=== PATIENT | male | born 1965 | race Two or more races ===

== ENCOUNTER 2022-12-05 10:39 | Inpatient (IN) | payer OTHER ==
[~2022-12-05] VITALS: Ht 177.8 cm; Wt 81.0 kg
[~2022-12-05 10:39] MED LIST: LISI20TA28 PO
[2022-12-05] MEDS ORDERED: ceFAZolin 1GM/50ML 100 ML IV ONE (10:46)
[2022-12-05] MEDS ORDERED: TRANEXAMIC ACID 20 ML ONE (11:01)
[2022-12-05] MEDS ORDERED: ACETAMINOPHEN 325 MG TAB PO PRN (14:30)
[2022-12-05] MEDS ORDERED: oxyCODONE HCL 5MG TAB PO PRN (14:30)
[2022-12-05] MEDS ORDERED: ONDANSETRON HCL 4 MG/2 ML VIAL IV PRN ×2 (14:30)
[2022-12-05] MEDS: HYDROmorphone HCL 2 MG/ML VL/or syr IV PRN ×3 (15:04→15:27)
[2022-12-05] MEDS: D5W/LACTATED RINGERS 1,000 ML IV SCH (18:02)
[2022-12-05] MEDS: KETOROLAC TROMETH 30 MG/ML 1ML VIAL IV SCH ×2 (18:06→23:27)
[2022-12-05] MEDS: ACETAMINOPHEN 325 MG TAB PO SCH ×2 (18:07→23:27)
[2022-12-05 18:25] VITALS: BP 92/67
[2022-12-05 20:00] VITALS: BP 99/72
[2022-12-05] MEDS: PREGABALIN 25 MG CAP PO SCH (20:50)
[2022-12-05] MEDS: ceFAZolin 2 GM/D5W100ml 100 ML IV SCH (20:51)
[2022-12-06] VITALS (7 sets, daily range): BP systolic 98–130; BP diastolic 57–71
[2022-12-06] MEDS: D5W/LACTATED RINGERS 1,000 ML IV SCH ×3 (00:31→20:30)
[2022-12-06] MEDS: ceFAZolin 2 GM/D5W100ml 100 ML IV SCH (03:29)
[2022-12-06] MEDS: oxyCODONE HCL 5MG TAB PO PRN ×3 (04:52→22:04)
[2022-12-06] MEDS: ACETAMINOPHEN 325 MG TAB PO SCH ×4 (05:26→23:46)
[2022-12-06] MEDS: KETOROLAC TROMETH 30 MG/ML 1ML VIAL IV SCH ×4 (05:26→23:46)
[2022-12-06] MEDS: ASPirin 81 mg TAB PO SCH ×2 (09:11→20:58)
[2022-12-06] MEDS: PREGABALIN 25 MG CAP PO SCH ×2 (09:12→20:58)
[2022-12-06 09:18] LABS: Basophils # (auto) 0 10 ^3/uL (0-0.2); Basophils % (auto) 0.2 % (0.0-2.0); Eosinophils # (auto) 0 10 ^3/uL (0-0.8); Eosinophils % (auto) 0.2 % (0.0-7.0); Hematocrit 33.6 % (41.0-53.0); Hemoglobin 11.5 g/dL (13.5-17.5); Lymphocytes # (auto) 1.1 10 ^3/uL (0.4-5.4); Lymphocytes % (auto) 19.4 % (10.0-50.0); Mean Corpuscular Hgb Conc. 34.1 g/dL (32.0-36.0); Mean Corpuscular Volume 93.9 fL (80.0-100.0); Monocytes # (auto) 0.8 10 ^3/uL (0-1.3); Monocytes % (auto) 13.6 % (0.0-12.0); Neutrophils # (auto) 3.7 10 ^3/uL (1.6-8.6); Neutrophils % (auto) 66.6 % (37.0-80.0); Nucleated Red Blood Cells % 0.1 %; Red Blood Cells 3.58 10^6/uL (4.5-5.90); White Blood Cell 5.6 10^3/uL (4.4-10.8)
[2022-12-06 11:14] LABS: BUN/Creatinine Ratio 7.9 (10.0-20.0); Calcium 7.7 mg/dL (8.5-10.1); Potassium 3.9 mmol/L (3.5-5.1)
[2022-12-07] MEDS: D5W/LACTATED RINGERS 1,000 ML IV SCH (03:05)
[2022-12-07 04:35] VITALS: BP 103/64
[2022-12-07] MEDS: ACETAMINOPHEN 325 MG TAB PO SCH ×2 (05:32→12:16)
[2022-12-07] MEDS: KETOROLAC TROMETH 30 MG/ML 1ML VIAL IV SCH ×2 (05:33→12:15)
[2022-12-07 09:00] VITALS: BP 108/62
[2022-12-07] MEDS: ASPirin 81 mg TAB PO SCH (09:18)
[2022-12-07] MEDS: PREGABALIN 25 MG CAP PO SCH (09:18)
[2022-12-07] MEDS: oxyCODONE HCL 5MG TAB PO PRN (09:19)
[2022-12-07 13:00] VITALS: BP 132/73
== END 2022-12-07 16:05 | disposition home or self-care (01) | DRG 470 ==
LOC: SUR 10:39 → OVERFLOW 14:30 → DOU IN ICU 17:11 → EAST 12-06 16:03
PROVIDERS: ADMIT Orthopaedic Surgery; ATTEND Orthopaedic Surgery
PROC: 3E0T3BZ Introduction of Anesthetic Agent into Peripheral Nerves and Plexi, Percutaneous Approach (ICD-10-PCS; 2022-12-05)
PROC: 0SRC069 Replacement of Right Knee Joint with Oxidized Zirconium on Polyethylene Synthetic Substitute, Cemented, Open Approach (ICD-10-PCS; principal; 2022-12-05 12:11)
DX: M17.11 Unilateral primary osteoarthritis, right knee (principal); I10 Essential (primary) hypertension
CPT/HCPCS: 36415; 73560; 80048; 85025; 86850; 86900; 86901; 87081; 97110; 97116; 97163; 97530; G0378; J0690; J1885; J2405